=== PATIENT | female | born 1935 | race Caucasian/White ===

== ENCOUNTER → 2019-10-24 12:47 | Outpatient (BNVA) | payer MEDICARE, SELFPAY | PROVIDERS: Visit Provider Nurse Practitioner Family | DX: R68.89 Other general symptoms and signs (principal); Z20.828 Contact with and (suspected) exposure to other viral communicable diseases; E11.9 Type 2 diabetes mellitus without complications; I10 Essential (primary) hypertension | CPT/HCPCS: 87400; 87635 ==

== ENCOUNTER → 2019-12-29 18:00 | Outpatient (BNVA) | payer MEDICARE, SELFPAY | PROVIDERS: Visit Provider Family Medicine | DX: I10 Essential (primary) hypertension (principal); E11.9 Type 2 diabetes mellitus without complications; M19.90 Unspecified osteoarthritis, unspecified site; G89.4 Chronic pain syndrome; F33.0 Major depressive disorder, recurrent, mild; L70.0 Acne vulgaris | CPT/HCPCS: 80053; 80061; 83036 ==

== ENCOUNTER → 2020-02-10 11:31 | Outpatient (BNVA) | payer MEDICARE, SELFPAY | PROVIDERS: Visit Provider Family Medicine | DX: R30.0 Dysuria (principal) | CPT/HCPCS: 80053; 81000; 87077; 87086; 87186 ==

== ENCOUNTER → 2020-02-25 09:29 | Outpatient (BNVA) | payer MEDICARE, SELFPAY | PROVIDERS: PCP Family Medicine; Referring Provider Family Medicine; Visit Provider Anesthesiology Pain Medicine | DX: G89.4 Chronic pain syndrome (principal); M47.812 Spondylosis without myelopathy or radiculopathy, cervical region; I69.30 Unspecified sequelae of cerebral infarction; I69.398 Other sequelae of cerebral infarction; M54.9 Dorsalgia, unspecified; M19.90 Unspecified osteoarthritis, unspecified site; Z79.891 Long term (current) use of opiate analgesic | CPT/HCPCS: 99204 ==

== ENCOUNTER → 2020-04-27 11:14 | Outpatient (BNVA) | payer MEDICARE, SELFPAY | PROVIDERS: PCP Family Medicine; Visit Provider Family Medicine | DX: E11.9 Type 2 diabetes mellitus without complications (principal); I10 Essential (primary) hypertension | CPT/HCPCS: 80053; 83036 ==

== ENCOUNTER → 2020-10-14 18:00 | Outpatient (BNVA) | payer MEDICARE, SELFPAY | PROVIDERS: PCP Family Medicine; Visit Provider Family Medicine | DX: I10 Essential (primary) hypertension (principal); J30.9 Allergic rhinitis, unspecified; E11.9 Type 2 diabetes mellitus without complications; A09 Infectious gastroenteritis and colitis, unspecified; F33.0 Major depressive disorder, recurrent, mild; G89.4 Chronic pain syndrome; M19.90 Unspecified osteoarthritis, unspecified site; J01.90 Acute sinusitis, unspecified; B96.89 Other specified bacterial agents as the cause of diseases classified elsewhere; J30.1 Allergic rhinitis due to pollen | CPT/HCPCS: 80048; 83036 ==

== ENCOUNTER → 2021-02-03 08:45 | Outpatient (BNVA) | payer MEDICARE, SELFPAY | PROVIDERS: PCP Family Medicine; Visit Provider Family Medicine | DX: R30.0 Dysuria (principal); K29.70 Gastritis, unspecified, without bleeding; M54.89 Other dorsalgia; K29.00 Acute gastritis without bleeding; A09 Infectious gastroenteritis and colitis, unspecified | CPT/HCPCS: 81000 ==

== ENCOUNTER → 2021-02-14 17:32 | Outpatient (BNVA) | payer MEDICARE, SELFPAY | PROVIDERS: PCP Family Medicine; Visit Provider Nurse Practitioner Family | DX: R68.89 Other general symptoms and signs (principal) | CPT/HCPCS: 87400 ==

== ENCOUNTER → 2021-04-11 15:37 | Outpatient (BNVA) | payer MEDICARE, SELFPAY | PROVIDERS: PCP Family Medicine; Visit Provider Family Medicine | DX: F33.0 Major depressive disorder, recurrent, mild (principal); K29.70 Gastritis, unspecified, without bleeding; I10 Essential (primary) hypertension; E78.2 Mixed hyperlipidemia; E11.9 Type 2 diabetes mellitus without complications; M54.89 Other dorsalgia; J30.9 Allergic rhinitis, unspecified; G89.4 Chronic pain syndrome; M19.90 Unspecified osteoarthritis, unspecified site; J30.1 Allergic rhinitis due to pollen; K21.9 Gastro-esophageal reflux disease without esophagitis | CPT/HCPCS: 80053; 80061; 83036 ==

== ENCOUNTER → 2021-06-18 11:41 | Outpatient (BNVA) | payer MEDICARE, SELFPAY | PROVIDERS: PCP Family Medicine; Visit Provider Emergency Medicine | DX: R10.9 Unspecified abdominal pain (principal); N39.0 Urinary tract infection, site not specified | CPT/HCPCS: 81000; 87077; 87086; 87184 ==

== ENCOUNTER → 2021-06-23 08:43 | Outpatient (BNVA) | payer MEDICARE, SELFPAY | PROVIDERS: PCP Family Medicine; Visit Provider Family Medicine | DX: R10.31 Right lower quadrant pain (principal); Z87.440 Personal history of urinary (tract) infections | CPT/HCPCS: 81000; 87086 ==

== ENCOUNTER → 2021-10-17 11:40 | Outpatient (BNVA) | payer MEDICARE, SELFPAY | PROVIDERS: PCP Family Medicine; Visit Provider Family Medicine | DX: E87.6 Hypokalemia (principal); E11.9 Type 2 diabetes mellitus without complications; M47.812 Spondylosis without myelopathy or radiculopathy, cervical region; I69.398 Other sequelae of cerebral infarction; R52 Pain, unspecified; M19.90 Unspecified osteoarthritis, unspecified site; G89.4 Chronic pain syndrome; I10 Essential (primary) hypertension; G44.40 Drug-induced headache, not elsewhere classified, not intractable | CPT/HCPCS: 85025 ==

== ENCOUNTER → 2022-02-01 17:21 | Outpatient (BNVA) | payer MEDICARE, SELFPAY | PROVIDERS: PCP Family Medicine; Visit Provider Emergency Medicine | DX: M79.631 Pain in right forearm (principal); S52.201A Unspecified fracture of shaft of right ulna, initial encounter for closed fracture; W19.XXXA Unspecified fall, initial encounter | CPT/HCPCS: 73090 ==

== ENCOUNTER → 2022-02-06 08:28 | Outpatient (BNVA) | payer MEDICARE, SELFPAY | PROVIDERS: PCP Family Medicine; Visit Provider Specialist | DX: S52.502A Unspecified fracture of the lower end of left radius, initial encounter for closed fracture (principal); S52.602A Unspecified fracture of lower end of left ulna, initial encounter for closed fracture; W19.XXXA Unspecified fall, initial encounter | CPT/HCPCS: 25600; 73110; 99203 ==

== ENCOUNTER 2022-02-06 14:39 | Outpatient (CLI) | payer MEDICARE, SELFPAY | END 2022-02-06 14:40 | disposition home or self-care (01) | LOC: SPT 14:39 | PROVIDERS: PCP Family Medicine; Visit Provider Specialist | DX: Z46.89 Encounter for fitting and adjustment of other specified devices (principal); S52.592D Other fractures of lower end of left radius, subsequent encounter for closed fracture with routine healing; S52.692D Other fracture of lower end of left ulna, subsequent encounter for closed fracture with routine healing; X58.XXXD Exposure to other specified factors, subsequent encounter | CPT/HCPCS: 97760; L3982 ==

== ENCOUNTER → 2022-02-20 10:28 | Outpatient (BNVA) | payer MEDICARE, SELFPAY | PROVIDERS: PCP Family Medicine; Visit Provider Specialist | DX: S52.91XA Unspecified fracture of right forearm, initial encounter for closed fracture (principal); S52.201A Unspecified fracture of shaft of right ulna, initial encounter for closed fracture; S52.502A Unspecified fracture of the lower end of left radius, initial encounter for closed fracture; S52.602A Unspecified fracture of lower end of left ulna, initial encounter for closed fracture; W19.XXXA Unspecified fall, initial encounter | CPT/HCPCS: 73110; 99024; 99204 ==

== ENCOUNTER → 2022-03-27 07:52 | Outpatient (BNVA) | payer MEDICARE, SELFPAY | PROVIDERS: PCP Family Medicine; Visit Provider Specialist | DX: S52.502A Unspecified fracture of the lower end of left radius, initial encounter for closed fracture (principal); S52.602A Unspecified fracture of lower end of left ulna, initial encounter for closed fracture; W18.30XA Fall on same level, unspecified, initial encounter; Y92.012 Bathroom of single-family (private) house as the place of occurrence of the external cause | CPT/HCPCS: 73110; 99024 ==

== ENCOUNTER 2022-03-27 10:49 | Outpatient (CLI) | payer MEDICARE, SELFPAY | END 2022-03-27 10:50 | disposition home or self-care (01) | LOC: SPT 10:49 | PROVIDERS: PCP Family Medicine; Visit Provider Specialist | DX: S52.502D Unspecified fracture of the lower end of left radius, subsequent encounter for closed fracture with routine healing (principal); X58.XXXD Exposure to other specified factors, subsequent encounter | CPT/HCPCS: 97760; 99024; L3908 ==

== ENCOUNTER → 2022-05-01 09:26 | Outpatient (BNVA) | payer MEDICARE, SELFPAY | PROVIDERS: PCP Family Medicine; Visit Provider Family Medicine | DX: I10 Essential (primary) hypertension (principal); E11.9 Type 2 diabetes mellitus without complications; K29.70 Gastritis, unspecified, without bleeding; E87.6 Hypokalemia; F33.0 Major depressive disorder, recurrent, mild; M47.812 Spondylosis without myelopathy or radiculopathy, cervical region; I69.398 Other sequelae of cerebral infarction; G89.4 Chronic pain syndrome; E78.2 Mixed hyperlipidemia; K21.9 Gastro-esophageal reflux disease without esophagitis; R35.1 Nocturia; M19.90 Unspecified osteoarthritis, unspecified site | CPT/HCPCS: 80053; 80061; 83036 ==

== ENCOUNTER → 2022-08-25 15:13 | Outpatient (BNVA) | payer MEDICARE, SELFPAY | PROVIDERS: PCP Family Medicine; Visit Provider Nurse Practitioner Family | DX: Z20.822 Contact with and (suspected) exposure to COVID-19 (principal); R68.89 Other general symptoms and signs | CPT/HCPCS: 87400; 87426 ==

== ENCOUNTER → 2022-09-11 11:10 | Outpatient (BNVA) | payer MEDICARE, SELFPAY | PROVIDERS: PCP Family Medicine; Visit Provider Family Medicine | DX: E11.9 Type 2 diabetes mellitus without complications (principal); M19.90 Unspecified osteoarthritis, unspecified site; I10 Essential (primary) hypertension | CPT/HCPCS: 80048; 83036; 85651; 86038; 86140 ==

== ENCOUNTER → 2023-01-07 14:40 | Outpatient (BNVA) | payer MEDICARE, SELFPAY | PROVIDERS: PCP Family Medicine; Visit Provider Nurse Practitioner | DX: N39.0 Urinary tract infection, site not specified (principal) | CPT/HCPCS: 81000 ==

== ENCOUNTER → 2023-01-12 11:04 | Outpatient (BNVA) | payer MEDICARE, SELFPAY | PROVIDERS: PCP Family Medicine; Visit Provider Nurse Practitioner Family | DX: N23 Unspecified renal colic (principal) | CPT/HCPCS: 81000 ==

== ENCOUNTER → 2023-06-04 09:14 | Outpatient (BNVA) | payer MEDICARE, SELFPAY | PROVIDERS: PCP Family Medicine; Visit Provider Family Medicine | DX: I10 Essential (primary) hypertension (principal); E11.9 Type 2 diabetes mellitus without complications; E87.6 Hypokalemia; J44.9 Chronic obstructive pulmonary disease, unspecified | CPT/HCPCS: 85025 ==

== ENCOUNTER → 2023-11-19 13:20 | Outpatient (BNVA) | payer MEDICARE, SELFPAY | PROVIDERS: PCP Family Medicine; Visit Provider Family Medicine | DX: I10 Essential (primary) hypertension (principal); M54.2 Cervicalgia; R60.0 Localized edema; E87.6 Hypokalemia; M47.812 Spondylosis without myelopathy or radiculopathy, cervical region; G44.229 Chronic tension-type headache, not intractable | CPT/HCPCS: 72040 ==

== ENCOUNTER → 2023-12-03 10:42 | Outpatient (BNVA) | payer MEDICARE, SELFPAY | PROVIDERS: PCP Family Medicine; Visit Provider Family Medicine | DX: I10 Essential (primary) hypertension; E11.9 Type 2 diabetes mellitus without complications; E87.6 Hypokalemia; E78.2 Mixed hyperlipidemia | CPT/HCPCS: 80053; 80061 ==

== ENCOUNTER → 2024-10-06 09:43 | Outpatient (BNVA) | payer MEDICARE, SELFPAY | PROVIDERS: PCP Family Medicine; Visit Provider Family Medicine | DX: E05.90 Thyrotoxicosis, unspecified without thyrotoxic crisis or storm (principal); E11.9 Type 2 diabetes mellitus without complications | CPT/HCPCS: 80048; 83036; 84439; 84443; 84481 ==

== ENCOUNTER → 2024-12-01 09:53 | Outpatient (BNVA) | payer MEDICARE, SELFPAY | PROVIDERS: PCP Family Medicine; Referring Provider Family Medicine; Visit Provider Internal Medicine | DX: I10 Essential (primary) hypertension (principal); E05.90 Thyrotoxicosis, unspecified without thyrotoxic crisis or storm | CPT/HCPCS: 36415; 80053; 83516; 84439; 84443; 85025; 86376; 86800 ==

== ENCOUNTER → 2025-01-19 14:51 | Outpatient (BNVA) | payer MEDICARE, SELFPAY | PROVIDERS: PCP Family Medicine; Visit Provider Family Medicine | DX: I10 Essential (primary) hypertension (principal); E11.9 Type 2 diabetes mellitus without complications; E78.2 Mixed hyperlipidemia | CPT/HCPCS: 80061; 83036; 84439; 84443 ==

== ENCOUNTER 2025-01-20 13:22 | Emergency (ER) | payer MEDICARE, SELFPAY ==
--- NOTE | 2025-01-20 13:26 | XR_ITS ---
WS: [id number] Exam: XR shoulder RT min 2V* [id number] Date/Time of Exam: 01/20/2025 1:26 PM Reason For Exam: injury There is a fracture through the surgical neck of the humerus with posterior lateral rotation of the humeral head. There may be some callus formation along the lateral aspect of the fracture. Advanced DJD of the glenohumeral joint. Osteopenia. XR/XR shoulder RT min 2V* [id number] IMPRESSION: 1. Angulated fracture through the surgical neck of the humerus. There may be so me callus formation noted laterally. This could be a healing fracture. 2. Advanced DJD at the glenohumeral joint with [id number]
[2025-01-20 13:34] VITALS: BP 163/83; PULSE 63; RESP 18; TEMP 36.6; O2SAT 92
[2025-01-20 13:38] VITALS: BP 163/83; PULSE 62; RESP 16; O2SAT 91
--- NOTE | 2025-01-20 13:38 | ED_ITS ---
HPI - Extremity Injury (Upper) General: Chief Complaint: Extremity Injury, Upper Stated Complaint: Fall, R Shoulder pain Time Seen by Provider: 01/20/25 13:33 Source: patient and EMS Mode of arrival: EMS Limitations: no limitations History of Present Illness: Patient is an 89-year-old female here via EMS for evaluation of a right shoulder injury. Patient states she was in her laundry room and believes there was water on the floor which caused her to slip and fall. She also states she may have tripped over the rug in the laundry room. Either way, patient states she fell into the wall and struck her right shoulder. She reports hearing a crunch . Patient states she did not fall to the ground. She denies striking her head or LOC. Her only physical complaint at time of arrival is right shoulder pain. She denies numbness, tingling, loss of sensation. Patient states she resides with her son. MD complaint: injury to: right and shoulder Onset (ago): hour(s) Other Extremity Injury: Right: shoulder Other injuries: none Place: home Severity: severe Relieving factors: immobilization Exacerbating factors: movement of extremity Context: direct blow Associated symptoms: Reports no associated symptoms; Denies neck pain Related Data Home Medications ?Medication ?Instructions ?Recorded ?Confirmed aspirin 81 mg tablet,delayed 81 mg PO DAILY 10/24/19 0 01/19/25 release (Adult Low Dose Aspirin) lidocaine 4 % topical patch 1 patch topical DAILY PRN 02/03/21 01/19/25 Previous Rx's ?Medication ?Instructions ?Recorded triamcinolone acetonide 0.1 % 1 applic topical DAILY # 454 grams 12/04/22 topical cream lactobacillus combination no.4 3 3,000 mmu cells PO DA CLAU #30 caps 09/10/23 billion cell capsule (Probiotic) loperamide 2 mg capsule 2 mg PO QID PRN loose stool #60 09/10/23 caps COCK UP SPLINT #1 ea 11/15/23 lidocaine 5 % topical patch 1 patch topical DAILY #30 ea 03/10/24 lidocaine HCl 2 % mucosal solution 1 applic mucous mem brane QID PRN 04/15/24 (Lidocaine Viscous) pain #100 mL albuterol sulfate 90 mcg/actuation 1 inh inhalation QI D #6.7 grams 01/19/25 aerosol inhaler (Ventolin HFA) budesonide-formoterol HFA 160 1 inh inhalation BID #10 .2 grams 01/19/25 mcg-4.5 mcg/actuation aerosol inhaler (Symbicort) cyclobenzaprine 5 mg tablet 5 mg PO TID PRN muscle spa sm #60 01/19/25 tabs enalapril maleate 20 mg tablet See Rx Instructions .Ro mary ellen 01/19/25 .COMPLEX #180 tabs hydrochlorothiazide 25 mg tablet 25 mg PO BID 90 days #180 tabs 01/19/25 metformin 500 mg tablet See Rx Instructions .Route 0 01/19/25 .COMPLEX #90 tabs methimazole 10 mg tablet 10 mg PO DAILY 90 days #90 t abs 01/19/25 metoprolol succinate 100 mg See Rx Instructions .Route 01/19/25 tablet,extended release 24 hr .COMPLEX #90 tabs miscellaneous medical supply See Rx Instructions misce llaneous 01/19/25 .COMPLEX #1 ea nifedipine 30 mg tablet,extended See Rx Instructions . Route 01/19/25 release 24 hr .COMPLEX #90 tabs omeprazole 40 mg capsule,delayed See Rx Instructions . Route 01/19/25 release .COMPLEX #180 caps ondansetron HCl 4 mg tablet See Rx Instructions .Route 01/19/25 .COMPLEX #20 tabs potassium chloride 8 mEq See Rx Instructions .Route 0 01/19/25 tablet,extended release .COMPLEX #90 tabs sertraline 50 mg tablet See Rx Instructions .Route 0 01/19/25 .COMPLEX #90 tabs tramadol 50 mg tablet 50 mg PO TID PRN pain 30 day s #90 01/19/25 tabs hydrocodone 5 mg-acetaminophen 325 1 tab PO .q 4-6 PRN pain #20 tabs 01/20/25 mg tablet Allergies Allergy/AdvReac Type Severity Reaction Status Date / Time No Known Allergies Allergy Verified 01/19/25 07:19 Review of Systems Card: Denies: chest pain, palpitations, lightheadedness, syncope or pre- syncope Resp: Denies: dyspnea Musc: Reports: joint pain (R shoulder); Denies: neck pain, back pain, extremity pain or extremity swelling Neuro: Denies: numbness in extremities or sensory changes PFSH ED PFSH: Medical History Chronic sinusitis of both maxillary sinuses Allergic rhinitis Insomnia Hyperlipidemia, mixed History of CVA (cerebrovascular accident) Chronic arthritis Major depression Chronic pain syndrome Diabetes Hypertension Amlodipine caused rash Surgical History No pertinent past surgical history Family History Denies family history of Anesthesia complication Bleeding disorder Social History Smoking and tobacco/nicotine status: unknown if used tobacco/nicotine Second hand smoke exposure: No Alcohol intake: never Substance/Drug Use: never Current gender identity: Female Female Reproductive History: Spontaneous abortions: No Physical Exam Const: COMMON NORMALS: no acute distress, average body habitus, no limitations, healthy appearing, alert and well nourished GENERAL APPEARANCE: cooperative ORIENTATION/CONSCIOUSNESS: Yes awake, Yes oriented to person and Yes oriented to place HENMT: COMMON NORMALS: normocephalic and atraumatic HEAD & SCALP: normal to inspection, normocephalic and atraumatic FACE & SINUS: normal facial exam Neck/C-Spine: COMMON NORMALS: full ROM GENERAL: Yes normal visual inspection CERVICAL SPINE: No Cervical spine tenderness Chest: COMMONS NORMALS: normal inspection of the chest and normal palpation of entire chest wall Resp: COMMON NORMALS: normal respiratory effort Back/Pelvis: COMMON NORMALS: thoracic and lumbar spine normal to inspection and no thoracic nor lumbar tenderness Extremity: COMMON NORMALS: capillary refill normal GENERAL: Yes normal exam except as noted RIGHT UPPER EXTREMITY: Yes shoulder joint (TTP proximal humerus) Right shoulder: Yes Right shoulder joint ROM exam (limited due to pain) and Yes Right shoulder joint neurovascular exam (normal) Neuro: COMMON NORMALS: moves all extremities, no focal motor deficits and no sensory deficits noted SENSORIUM/ORIENTATION: Yes alert, Yes oriented to person and Yes oriented to place Course Vital Signs: Vital signs: Vital Signs Temperature 97.8 F 01/20/25 13:34 Pulse Rate 62 01/20/25 13:38 Respiratory Rate 16 01/20/25 13:38 Blood Pressure 163/83 01/20/25 13:38 Pulse Oximetry 91 01/20/25 13:38 Oxygen Delivery Me thod Room Air 01/20/25 13:38 MDM - Extremity Injury (Upper) Medical Decision Making XR patient's right shoulder showing a humeral neck fracture. Spoke to Dr. Medina who agrees with plan for sling and follow-up in office. Patient states she feels comfortable going home with her son to help take care of her. Medical Records I reviewed the patient's medical records. Lab Data Radiology Impressions Shoulder X-Ray 01/20/25 13:26 IMPRESSION: 1. Angulated fracture through the surgical neck of the humerus. There may be some callus formation noted laterally. This could be a healing fracture. 2. Advanced DJD at the glenohumeral joint with [id number] All radiology interpretation(s) finalized by discharge Discharge Plan Discharge Patient Disposition: Home Clinical Impression: Closed fracture of proximal end of right humerus Qualifiers: Encounter type: initial encounter Fracture morphology: other fracture Fracture alignment: displaced Qualified Code(s): S42.291A - Other displaced fracture of upper end of right humerus, initial encounter for closed fracture Condition: Stable Prescriptions: New hydrocodone-acetaminophen 5-325 mg tablet 1 tab PO .q 4-6 PRN (Reason: pain) Qty: 20 0RF No Action aspirin [Adult Low Dose Aspirin] 81 mg tablet,delayed release (DR/EC) 81 mg PO DAILY lidocaine 4 % adhesive patch,medicated 1 patch topical DAILY PRN lidocaine 5 % adhesive patch,medicated 1 patch topical DAILY Qty: 30 0RF Rx Instructions: leave on most painful area for up to 12 hrs triamcinolone acetonide 0.1 % cream 1 applic topical DAILY Qty: 454 0RF loperamide 2 mg capsule 2 mg PO QID PRN (Reason: loose stool) Qty: 60 1RF Probiotic 3 billion cell capsule 3,000 mmu cells PO DAILY Qty: 30 1RF Rx Instructions: administer with a meal may change type/brand per insurance and availability (DME) COCK UP SPLINT See Rx Instructions .Route .MEDSUPPLY Qty: 1 0RF Rx Instructions: As directed lidocaine HCl [Lidocaine Viscous] 2 % solution 1 applic mucous membrane QID PRN (Reason: pain) Qty: 100 0RF miscellaneous medical supply Misc See Rx Instructions miscellaneous .COMPLEX Qty: 1 0RF Rx Instructions: inogen portable machine, 2L use with activity as directed; albuterol sulfate [Ventolin HFA] 90 mcg/actuation HFA aerosol inhaler 1 inh inhalation QID Qty: 6.7 5RF budesonide-formoterol [Symbicort] 160-4.5 mcg/actuation HFA aerosol inhaler 1 inh inhalation BID Qty: 10.2 5RF cyclobenzaprine 5 mg tablet 5 mg PO TID PRN (Reason: muscle spasm) Qty: 60 5RF enalapril maleate 20 mg tablet See Rx Instructions .ROUTE .COMPLEX Qty: 180 2RF Dose Instruction: TAKE ONE TABLET BY MOUTH TWICE DAILY FOR 90 DAYS Rx Instructions: TAKE ONE TABLET BY MOUTH TWICE DAILY FOR 90 DAYS hydrochlorothiazide 25 mg tablet 25 mg PO BID 90 Days Qty: 180 2RF metformin 500 mg tablet See Rx Instructions .ROUTE .COMPLEX Qty: 90 2RF Dose Instruction: TAKE 1 TABLET BY MOUTH ONCE DAILY FOR 90 DAYS Rx Instructions: TAKE 1 TABLET BY MOUTH ONCE DAILY FOR 90 DAYS methimazole 10 mg tablet 10 mg PO DAILY 90 Days Qty: 90 2RF metoprolol succinate 100 mg tablet extended release 24 hr See Rx Instructions .ROUTE .COMPLEX Qty: 90 2RF Dose Instruction: TAKE 1 TABLET BY MOUTH ONCE DAILY FOR 90 DAYS Rx Instructions: TAKE 1 TABLET BY MOUTH ONCE DAILY FOR 90 DAYS omeprazole 40 mg capsule,delayed release(DR/EC) See Rx Instructions .ROUTE .COMPLEX Qty: 180 2RF Dose Instruction: TAKE ONE CAPSULE BY MOUTH TWICE DAILY FOR 90 DAYS Rx Instructions: TAKE ONE CAPSULE BY MOUTH TWICE DAILY FOR 90 DAYS nifedipine 30 mg tablet extended release 24hr See Rx Instructions .ROUTE .COMPLEX Qty: 90 2RF Dose Instruction: TAKE 1 TABLET BY MOUTH ONCE DAILY FOR 90 DAYS Rx Instructions: TAKE 1 TABLET BY MOUTH ONCE DAILY FOR 90 DAYS ondansetron HCl 4 mg tablet See Rx Instructions .ROUTE .COMPLEX Qty: 20 1RF Dose Instruction: TAKE ONE TABLET BY MOUTH EVERY 8 HOURS NEEDED FOR NAUSEA AND VOMITING Rx Instructions: TAKE ONE TABLET BY MOUTH EVERY 8 HOURS NEEDED FOR NAUSEA AND VOMITING potassium chloride 8 mEq tablet extended release See Rx Instructions .ROUTE .COMPLEX Qty: 90 2RF Dose Instruction: TAKE 1 TABLET BY MOUTH ONCE DAILY FOR 90 DAYS Rx Instructions: TAKE 1 TABLET BY MOUTH ONCE DAILY FOR 90 DAYS sertraline 50 mg tablet See Rx Instructions .ROUTE .COMPLEX Qty: 90 2RF Dose Instruction: TAKE 1 TABLET BY MOUTH ONCE DAILY FOR 90 DAYS Rx Instructions: TAKE 1 TABLET BY MOUTH ONCE DAILY FOR 90 DAYS tramadol 50 mg tablet 50 mg PO TID PRN (Reason: pain) 30 Days Qty: 90 3RF Rx Instructions: fill every 30 days when due Discharge Orders: Discharge ED (Routine); Ordered 01/20/25 Ordered By: Jordyn Aguilar Referrals: Darya Dc MD [Primary Care Provider, Family Practice] Patient Instructions: Opioid Safety, Pain Management, Patient Portal & Sugar Instructions Activity Restrictions/Additional Instructions: As we discussed, case management should reach out to you this week to help set you up with your follow-up orthopedic appointment for further evaluation of your proximal humerus fracture. I have prescribed you pain medications to the pharmacy you indicated. Do not take these with your Tramadol you have listed on your medication list. Choose one or the other to help with discomfort. You need to stay in your sling at all times apart from showering or bathing. Print Language: Slovak Coding Level of Care Code ED Cnc Machine Operator for Melody Navarrete
[2025-01-20 15:33] VITALS: BP 116/81; PULSE 73; O2SAT 93
--- NOTE | 2025-01-21 11:12 | PC.NURSE ---
Ortho referral sent.
== END 2025-01-20 15:35 | disposition home or self-care (01) ==
PROVIDERS: Emergency Provider Physician Assistant; PCP Family Medicine
DX: S42.291A Other displaced fracture of upper end of right humerus, initial encounter for closed fracture (principal); E11.9 Type 2 diabetes mellitus without complications; I10 Essential (primary) hypertension; E78.2 Mixed hyperlipidemia; Z86.73 Personal history of transient ischemic attack (TIA), and cerebral infarction without residual deficits; W01.0XXA Fall on same level from slipping, tripping and stumbling without subsequent striking against object, initial encounter
CPT/HCPCS: 73030; 99283; A4565

== ENCOUNTER → 2025-06-08 14:13 | Outpatient (BNVA) | payer MEDICARE, SELFPAY | PROVIDERS: PCP Family Medicine; Visit Provider Family Medicine | DX: I10 Essential (primary) hypertension (principal); E05.90 Thyrotoxicosis, unspecified without thyrotoxic crisis or storm; E11.9 Type 2 diabetes mellitus without complications | CPT/HCPCS: 80048; 81000; 83036; 84439; 84443; 84481 ==